=== PATIENT | male | born 1960 | race Caucasian/White ===

== ENCOUNTER 2021-02-19 16:10 | Emergency (ER) | payer BC ==
[~2021-02-19] VITALS: Ht 180.3 cm; Wt 112.2 kg
--- NOTE | 2021-02-19 17:07 | REP ---
INDICATION: CHEST PAIN COMPARISON: None. TECHNIQUE: Portable AP view of the chest FINDINGS: The mediastinum and cardiac silhouette are within normal limits for portable technique. The lung gr are clear without acute consolidation, effusion, or pneumothorax. Skeletal structures are intact. IMPRESSION: No acute cardiopulmonary process appreciated. <Electronically signed by Glynn Rosado > 02/19/21 [id number]
[2021-02-19 18:17] LABS: BASO # 0.1 10^3/uL (0.0-0.2); BASO % 0.6 % (0.0-1.0); EOS # 0.1 10^3/uL (0.0-0.5); EOS % 1.2 % (0.0-3.0); HEMATOCRIT 50.1 % (42.0-52.0); HEMOGLOBIN 17.8 g/dl (13.5-17.5); LYMPH # 3.7 10^3/uL (1.5-5.0); LYMPH % 31.2 % (24.0-44.0); MEAN CORPUSCULAR HEMOGLOBIN 30.1 pg (27.0-33.0); MEAN CORPUSCULAR HGB CONC 35.5 g/dl (32.0-36.5); MEAN CORPUSCULAR VOLUME 84.8 fl (80.0-96.0); MONO # 0.7 10^3/uL (0.0-0.8); MONO % 6.3 % (2.0-8.0); NEUTROPHILS # 7.1 10^3/uL (1.5-8.5); NEUTROPHILS % 60.4 % (36.0-66.0); PLATELET COUNT, AUTOMATED 308 10^3/uL (150-450); RED BLOOD COUNT 5.91 10^6/uL (4.30-6.10); WHITE BLOOD COUNT 11.8 10^3/uL (4.0-10.0)
[2021-02-19 18:27] LABS: INR 0.97; PROTHROMBIN TIME 13.3 SECONDS (12.7-14.5)
[2021-02-19 18:28] LABS: PARTIAL THROMBOPLASTIN TIME 26.6 SECONDS (25.9-37.0)
[2021-02-19 18:43] LABS: ALBUMIN 3.5 GM/DL (3.2-5.2); BILIRUBIN,DIRECT 0.3 MG/DL (0.0-0.2); BILIRUBIN,TOTAL 1.5 MG/DL (0.2-1.0)
[2021-02-19 18:48] LABS: BLOOD UREA NITROGEN 8 MG/DL (7-18); CALCIUM LEVEL 10.2 MG/DL (8.8-10.2); CARBON DIOXIDE LEVEL 27 MEQ/L (21-32); CHLORIDE LEVEL 103 MEQ/L (98-107); CK-MB VALUE MASS 7.2 NG/ML (<3.6); CPK CREATINE PHOSPHOKINASE 156 U/L (39-308); CREATININE FOR GFR 1.06 MG/DL (0.70-1.30); GLOMERULAR FILTRATION RATE > 60.0 (>49); GLUCOSE, FASTING 307 MG/DL (70-100); MB/CK RELATIVE INDEX 4.62 (< OR =4); NT-PRO BNP 47 PG/ML (<125); POTASSIUM SERUM 4.6 MEQ/L (3.5-5.1); SODIUM LEVEL 138 MEQ/L (136-145); TROPONIN I 1.85 NG/ML (< 0.10)
[2021-02-19] MEDS ORDERED: ASPIRIN 81 MG CHEW TABLET PO ONE (18:50)
[2021-02-19 19:05] VITALS: BP 156/95
--- NOTE | 2021-02-20 17:35 | ECGEPIP ---
[facility] - ED Test Date: 2021-02-19 Pat Name: JOE COLE Department: Room: - Gender: Male [place] Joiner: LILLY : 1960 Requested By: Alyssa Mullins Order Number: [id number] Reading MD: Alyssa Mullins Measurements Intervals [place] Rate: 108 P: 48 VT: 170 QRS: -38 QRSD: 84 T: 33 QT: 338 QTc: 452 Interpretive Statements Sinus tachycardia with occasional premature ventricular complexes Left axis deviation Pulmonary disease pattern Inferior infarct , age undetermined NSTTW abnormalities No prior Electronically Signed on 02-20-2021 17:35:20 EDT by Alyssa Mullins
== END 2021-02-19 19:25 | disposition left against medical advice (07) ==
LOC: M ED 16:10
DX: I21.4 Non-ST elevation (NSTEMI) myocardial infarction (principal); I10 Essential (primary) hypertension; K21.9 Gastro-esophageal reflux disease without esophagitis; Z88.0 Allergy status to penicillin; Z88.5 Allergy status to narcotic agent; Z88.8 Allergy status to other drugs, medicaments and biological substances; Z87.891 Personal history of nicotine dependence